=== PATIENT | female | born 1990 | race Caucasian/White ===

== ENCOUNTER 2017-01-24 13:27 | Inpatient (IN) | payer MEDICAID ==
[~2017-01-24] VITALS: Ht 162.6 cm; Wt 95.1 kg
[2017-01-24 13:40] VITALS: BP 120/64; PULSE 98; RESP 18; Ht 162.6 cm; Wt 95.1 kg
[2017-01-24] MEDS ORDERED: TERBUTALINE 1 MG/ML INJ SC ONE (14:30)
[2017-01-24] MEDS ORDERED: OXYTOCIN 30 UNITS/LR 500 ML IV PRN (14:30)
[2017-01-24] MEDS ORDERED: METHYLERGONOVINE 0.2 MG INJ IM PRN (14:30)
[2017-01-24] MEDS ORDERED: OXYTOCIN 30 UNITS/LR 500 ML IV SCH (14:30)
[2017-01-24] MEDS ORDERED: AMPICILLIN 2 GM/NS (PMX) 100 ML IV ONE (14:30)
[2017-01-24] MEDS ORDERED: CARBOPROST 250 MCG INJ IM PRN (14:30)
[2017-01-24] MEDS ORDERED: CEFAZOLIN 2 GM/50 ML (PMX) 50 ML IV SCH (14:30)
[2017-01-24] MEDS ORDERED: MISOPROSTOL 200 MCG TAB PR PRN (14:30)
[2017-01-24] MEDS: LACTATED RINGER'S 1,000 ML IV SCH (14:47)
[2017-01-24 15:16] LABS: ADD SCAN DIFF NO
[2017-01-24 15:21] LABS: BASOPHILS % 0.2 % (0.0-2.0); EOSINOPHILS # 0.1 10^3/ul (0.0-0.5); EOSINOPHILS % 0.9 % (0.0-7.0); HEMATOCRIT 34.5 % (37.0-47.0); HEMOGLOBIN 11.3 g/dl (12.0-16.0); LYMPHOCYTES # 1.7 10^3/ul (0.8-2.9); LYMPHOCYTES % 16.9 % (15.0-51.0); MEAN CORPUSCULAR HEMOGLOBIN 29.5 pg (29.0-33.0); MEAN CORPUSCULAR HGB CONC 32.8 g/dl (32.0-37.0); MEAN CORPUSCULAR VOLUME 90.1 fl (82.0-101.0); MEAN PLATELET VOLUME 12.4 fl (7.4-10.4); MONOCYTE # 0.7 10^3/ul (0.3-0.9); MONOCYTES % 7.4 % (0.0-11.0); NEUTROPHIL # 7.2 10^3/ul (1.6-7.5); NEUTROPHILS % 73.6 % (39.0-77.0); PLATELET COUNT 126 10^3/UL (140-415); RED BLOOD COUNT 3.83 10^6/ul (4.20-5.40); RED CELL DISTRIBUTION WIDTH 13.4 % (11.5-14.5); WHITE BLOOD COUNT 9.8 10^3/ul (4.8-10.8)
[2017-01-24 15:34] LABS: INR 0.92; PROTIME 12.4 Sec (12.2-14.2)
[2017-01-24 15:37] LABS: PARTIAL THROMBOPLASTIN TIME 26.3 Sec (25.0-35.0)
[2017-01-24] MEDS ORDERED: LACTATED RINGER'S 1,000 ML IV ONE ×2 (16:48)
[2017-01-24] MEDS ORDERED: CITRIC ACID/SODIUM CITRATE 15 ML CUP PO ONE ×2 (17:00)
[2017-01-24] MEDS ORDERED: METOCLOPRAMIDE 10 MG INJ IV ONE ×2 (17:00)
[2017-01-24] MEDS ORDERED: FAMOTIDINE 20 MG INJ IV ONE ×2 (17:00)
--- NOTE | 2017-01-24 17:49 | HP ---
Date/Time of Note Date/Time of Note DATE: 01/24/17 TIME: 17:45 OB - History Hx of Present Free Text/Dictation HISTORY OF PRESENT ILLNESS: Patient is a 26 YO [id number] 1 with history of previous delivery, who desires to have repeat delivery and Permanent steriliation. I discussed with the patient the risks, benefits, indications, and alternatives of procedure including but not limited to risks of infection, bleeding, damage to other organs, bowel, bladder, hernia formation , scar formation, possibility of blood transfusion, possible need for emergency hysterectomy, as well as the fact that tubal ligation may fail and there is 1 to 2% risk of failure over lifetime of tubal ligations and the fact that tubal ligation is permanent and irreversible. She was allowed to ask questions. All her questions were answered. Informed consent has been obtained. : 4 Para: 2 Spontaneous : 0 Therapeutic : 0 Care: Good Care Ultrasounds: No ultrasounds Obstetrical Complications: Other (h/o cervical incompetence. had cerclage. cerclage waqs removed last week.) Medical Complications: None Past Family/Social History * Past Medical, Surgical, Family and Obstetric Histories reviewed from chart. OB Admission Exam Vital Signs Vital Signs Vital Signs Date Time Temp Pulse Resp B/P Pulse Ox O2 Delivery O2 Flow Rate FiO2 01/24/17 13:40 98.2 98 18 120/64 98 Room Air Physical Exam HEENT: WNL Heart: Rhythm Normal Lungs: Clear, Equal Abdomen: WNL Extremities: Normal Reflexes: Normal Last 72 hours Lab Results CBC & BMP 01/24/17 14:15 OB Assessment/Plan Other Assessment: Assessment: IUP 39 weeks h/o pervious Desires repeat Desires permanent sterilization Plan: Repeat Delivery Tubal ligation may be done by either salpingectomy or modified surendra BTL Other plan: repeat c/s amd BTL GETACHEW ABBOTT MD Jan 24, 2017 17:49
[2017-01-24] MEDS ORDERED: morphine SULFATE/PF (10 MG/10 ML) INJ ONE (17:58)
[2017-01-24] MEDS ORDERED: FENTAnyl 50 MCG/ML VIAL ONE (17:58)
[2017-01-24] MEDS ORDERED: PHENYLephrine (100 MCG/ML) 5ML SYG ONE (18:29)
[2017-01-24] MEDS ORDERED: AMPICILLIN 1 GM/NS (PMX) 50 ML IV SCH (18:30)
[2017-01-24] MEDS ORDERED: OXYTOCIN 30 UNITS/LR 500 ML IV ONE (18:31)
[2017-01-24] MEDS ORDERED: ONDANSETRON 4 MG INJ ONE (18:32)
[2017-01-24] MEDS ORDERED: DIPHENHYDRAMINE 50 MG INJ IV PRN ×2 (19:00→20:30)
[2017-01-24] MEDS ORDERED: KETOROLAC 30 MG INJ IV PRN (19:00)
[2017-01-24] MEDS ORDERED: FENTAnyl 50 MCG/ML VIAL IV PRN (19:00)
[2017-01-24] MEDS ORDERED: PROCHLORPERAZINE 10 MG INJ IV PRN ×2 (19:00→20:30)
[2017-01-24] MEDS ORDERED: ONDANSETRON 4 MG INJ IV PRN ×2 (19:00→20:30)
[2017-01-24] MEDS ORDERED: MEPERIDINE 25 MG INJ IV PRN (19:00)
[2017-01-24] MEDS ORDERED: HYDROmorphONE (0.2 MG/ML) 10ML SYG IV PRN (19:00)
--- NOTE | 2017-01-24 19:06 | OPR ---
Operative Report Planned Procedure Free Text/Dictation DATE OF OPERATION: PREOPERATIVE DIAGNOSES: 1. Term , history of previous delivery: 2. Desires repeat delivery. 3. Desires permanent sterilization 4. Labor POSTOPERATIVE DIAGNOSES: 1. Same OPERATION PERFORMED: Repeat delivery Right distal salpingectomy and left modified Greg tubal ligation SURGEON: Getachew Conley MD PUBLIC HEALTH WORKER: MS Soha MD ESTIMATED BLOOD LOSS: 700 mL. COMPLICATIONS: None. The risks, benefits, indications, alternatives of procedure including, but not limited to risk of infection, bleeding, damage to other organs, bowel, bladder, hernia formation, scar formation, possibility of blood transfusions, the risks of tubal ligation such as failure and future pregnancies were discussed with the patient. The fact that BTL is permanent and irreversible also discussed with patient. She was allowed to ask questions. All her questions were answered. Informed consent was obtained. DESCRIPTION OF PROCEDURE: She was taken to the operating room. Spinal anesthesia was induced. She was prepped and draped in the usual sterile fashion. Surgical time out one. Anesthesia was tested to be adequate. With permission from anethesiologist, a knife was used to make a Pfannenstiel skin incision. The incision was taken down in layers. The fascia was cut, undermined and from the underlying muscle using sharp and blunt dissection. All the bleeders were cauterized. Peritoneum was entered bluntly. A low transverse incision was developed over the uterus. Amniotic fluid was clear and adequate. A viable infant in vertex presentation was delivered without any difficulty. The cord was clamped and cut, handed to awaiting team. Placenta was then delivered. Uterus was exteriorized, wrapped around a moist lap. Inside uterus was cleaned using a dry lap. All residual membranes were removed. The uterine incision was then closed using #1 Monocryl in 2 layers. A 5 cm distal end of the right tube was ligated 3 times using 0 plain tie and the ligated portion was cut, sent to pathology. The distal end ot the left tube was already removed due to her Ectopic surgery. I ligated he middle portion of the left tube 3 times nd then the ligated portion was cut. The uterus was inserted back inside the abdominal cavity. Irrigation was done carefully. Careful evaluation of the uterine incision revealed no further bleeding. The tubal ligation sites were evaluated carefully. There was no bleeding. The peritoneum and rectus muscles and fascia were evaluated. All bleeders cauterized. Peritoneum was closed using 2-0 Monocryl. At this time, the count was correct. Rectus fascia was reapproximated using 2-0 Monocryl. Rectus fascia was closed using #1 Vicryl. Subcutaneous tissue was cleaned and irrigated. All bleeders cauterized and the skin closed using 4-0 Monocryl. All counts correct. Procedure date Jan 24, 2017 Post-Procedure Pt Condition post procedure: stable Disposition: PACU Physician Certification I, the undersigned physician, hereby certify that I have discussed the procedure described in this consent form with this patient (or the patient's legal operations representative), including: * The risk and benefits of the procedure; * Any adverse reactions that may reasonably be expected to occur; * Any alternative efficacious methods of treatment which may be medically viable ; * The potential problems that may occur during recuperation; * Potential for blood transfusion and associated risks/benefits; and * Any research or economic interest I may have regarding this treatment. I further certify that the patient/legally responsible person was encouraged to ask question and that all questions were answered. GETACHEW CONLEY MD Jan 24, 2017 19:06
[2017-01-24] MEDS ORDERED: NALOXONE (0.4 MG/ML) INJ IV PRN (20:30)
[2017-01-24] MEDS ORDERED: HYDROmorphONE 1 MG/ML SYG IV PRN ×2 (20:30)
[2017-01-24] MEDS ORDERED: ZOLPIDEM 5 MG TAB PO PRN (20:30)
--- NOTE | 2017-01-24 21:43 | DELSUM ---
Delivery Summary A-C Datetime Report Generated by CPN: 01/24/2017 21:42 DELIVERY PERSONNEL Linoleum Layer Helper: Concepcion, [place] MATERNAL INFORMATION Delivery Anesthesia: Spinal Medications in Delivery: see anesthesia Estimated Blood Loss (ml): 600 Placenta Cultured: No Maternal Complications: Other Other Maternal Complications: labor LABOR SUMMARY EDC: 02/10/2017 00:00 No. Babies in Womb: 1 Attempted: No Labor Anesthesia: Intrathecal LABOR INFORMATION Reason for Induction: Not Applicable Onset of Labor: 01/24/2017 05:00 Oxytocin: N/A Group B Beta Strep: Negative Antibiotics # of Doses: 1 Antibiotics Time of Last Dose: 01/24/2017 18:03 Steroids Given: None Reason Steroids Not Administered: Not Applicable MEMBRANES Membranes Rupture Method: Artificial Rupture of Membranes: 01/24/2017 18:24 Length of Rupture (hr): 0.02 Amniotic Fluid Color: Clear Amniotic Fluid Amount: Moderate Amniotic Fluid Odor: Normal STAGES OF LABOR Stage 3 hr: 0 Stage 3 min: 0 Total Time in Labor hr: 13 Total Time in Labor min: 25 CSECTION DELIVERY Primary Indication: Repeat Elective Secondary Indication: N/A CSection Urgency: Non Elective CSection Incidence: Repeat Labor: Labor Elective: Nonelective CSection Incision: Lower Uterine Transverse Sterilization Procedure: [place] BABY A INFORMATION Delivery Date/Time: 01/24/2017 18:25 Method of Delivery: Born in Route : No : N/A Forceps: N/A Vacuum Extraction: N/A Shoulder Dystocia : No SHOULDER DYSTOCIA BABY A Delivery Date/Time: 01/24/2017 18:25 PRESENTATION/POSITION BABY A Presentation: Cephalic Cephalic Presentation: Vertex Vertex Position: Left Occipital Anterior Breech Presentation: N/A PLACENTA INFORMATION BABY A Placenta Delivery Time : 01/24/2017 18:25 Placenta Method of Delivery: Manual Removal Placenta Status: Delivered SCORES BABY A Heart Rate 1 min: >100 bpm Resp Effort 1 min: Good Cry Reflex Irritability 1 min: Cough/Sneeze/Pulls Away Muscle Tone 1 min: Active Motion Color 1 min: Body [place], Extremit Blue Resuscitation Effort 1 min: Tactile Stimulation SCORE 1 MIN: 9 Heart Rate 5 min: >100 bpm Resp Effort 5 min: Good Cry Reflex Irritability 5 min: Cough/Sneeze/Pulls Away Muscle Tone 5 min: Active Motion Color 5 min: Body [place], Extremit Blue SCORE 5 MIN: 9 INFORMATION BABY A Gestational Age at Delivery: 37.4 Gestational Status: Early Term- 37- 38.6 Weeks Infant Outcome : Liveborn Infant Condition : Stable Sex: Female IDENTIFICATION/MEDS BABY A ID Band Number: [id number] ID Band Location: Right Leg; Left Arm Sensor Applied: Yes Sensor Number: [id number] Sensor Location : Cord Clamp WEIGHT/LENGTH BABY A Birthweight (gm): 3770 Weight (lb): 8 Weight (oz): 5 Infant Length (in): 19.00 Infant Length (cm): 48.26 CORD INFORMATION BABY A No. Cord Vessels: 3 Nuchal Cord : N/A Cord Blood Taken: Yes Infant Suction: Mouth ASSESSMENT BABY A Complications: None Physical Findings at Delivery: Within Normal Limits Infant Respirations: Appears Normal Applied Mathematician/ALS Called : No Infant Care By: /mio rnc Transferred To: Remains with Mother
[2017-01-24 22:25] VITALS: BP 110/79; PULSE 79; RESP 20
[2017-01-25 04:00] VITALS: BP 108/62; PULSE 87; RESP 19
[2017-01-25 07:37] LABS: ADD SCAN DIFF NO
[2017-01-25 07:54] LABS: ABNORMAL IP MESSAGE 1; BASOPHILS % 0.2 % (0.0-2.0); EOSINOPHILS # 0.1 10^3/ul (0.0-0.5); EOSINOPHILS % 0.8 % (0.0-7.0); HEMATOCRIT 27.4 % (37.0-47.0); HEMOGLOBIN 9.1 g/dl (12.0-16.0); LYMPHOCYTES # 1.4 10^3/ul (0.8-2.9); LYMPHOCYTES % 14.4 % (15.0-51.0); MEAN CORPUSCULAR HEMOGLOBIN 30.2 pg (29.0-33.0); MEAN CORPUSCULAR HGB CONC 33.2 g/dl (32.0-37.0); MEAN PLATELET VOLUME 12.6 fl (7.4-10.4); MONOCYTE # 0.8 10^3/ul (0.3-0.9); MONOCYTES % 7.9 % (0.0-11.0); NEUTROPHIL # 7.6 10^3/ul (1.6-7.5); NEUTROPHILS % 76.1 % (39.0-77.0); PLATELET COUNT 97 10^3/UL (140-415); RED BLOOD COUNT 3.01 10^6/ul (4.20-5.40); RED CELL DISTRIBUTION WIDTH 13.2 % (11.5-14.5)
--- NOTE | 2017-01-25 10:45 | PN ---
Date/Time of Note Date/Time of Note DATE: 01/25/17 TIME: 10:43 OB Subjective Subjective Subjective Patient tolerating clears. Has not ambulated yet. Pain controlled. OB Objective Objective Objective Gen: NAD Abd: I-C/D/I OB Assessment/Plan Other Assessment: POD1 -advance diet as tolerated -encourage ambulation MOO HERRING Jan 25, 2017 10:45
[2017-01-25 12:00] VITALS: BP 117/54; PULSE 92; RESP 20
[2017-01-25] MEDS: KETOROLAC 30 MG INJ IV PRN ×2 (12:41→18:54)
[2017-01-25 16:29] VITALS: BP 102/57; PULSE 82; RESP 20
[2017-01-25 20:10] VITALS: BP 106/64; PULSE 84; RESP 18
[2017-01-25] MEDS: LACTATED RINGER'S 1,000 ML IV SCH ×2 (21:56→21:57)
[2017-01-26] MEDS ORDERED: OXYCODONE/ACETAMINOPHEN (5/325) TAB PO PRN ×2 (01:30)
[2017-01-26 04:38] VITALS: BP 107/72; PULSE 81; RESP 18
[2017-01-26] MEDS: IBUPROFEN 800 MG TAB PO SCH ×4 (05:15→23:36)
[2017-01-26 08:00] VITALS: BP 90/63; PULSE 78; RESP 18
--- NOTE | 2017-01-26 11:54 | QN ---
Documentation Comment POD#2 is stable Afebrile tolerates diet No VB +Flatus No sign of depression VS stable Gen NAD Abd soft NT ND dressing to be removed Genitalia No blood at perinium --->discharge plan tomorrow --->ambulation EVAN NELSON M.D. Jan 26, 2017 11:54
[2017-01-26] MEDS ORDERED: SENNA TAB PO PRN (13:30)
[2017-01-26] MEDS ORDERED: LANOLIN 7 GM TUBE TOP PRN (13:30)
[2017-01-26] MEDS ORDERED: NA PHOSPHATE/BIPHOS 133 ML ENEMA PR PRN (13:30)
[2017-01-26 16:00] VITALS: BP 117/68; PULSE 78; RESP 18
[2017-01-26 20:00] VITALS: BP 113/59; PULSE 84; RESP 20
[2017-01-27 03:46] VITALS: BP 119/65; PULSE 74; RESP 20
[2017-01-27] MEDS: IBUPROFEN 800 MG TAB PO SCH ×3 (05:27→18:00)
[2017-01-27 08:00] VITALS: BP 114/68; PULSE 80; RESP 20
--- NOTE | 2017-01-27 13:43 | DS ---
Date/Time of Note Date/Time of Note DATE: 01/27/17 TIME: 13:42 Obstetrical Discharge Record Final Diagnosis Final Diagnosis: Term delivered Section Section: Repeat Condition on Discharge Physical Assessment Voiding: Yes Bowel Movement: Yes Breast: Soft, non-tender Fundus: Firm Abdomen and Incision: CDI Calf Tenderness: No Patient Condition: Stable ORQUIDEA CEDILLO MD Jan 27, 2017 13:43
[2017-01-27 18:11] VITALS: BP 116/67; PULSE 76; RESP 19
== END 2017-01-27 17:50 | disposition home or self-care (01) | DRG 765 ==
LOC: OBT 13:27 → L-D 13:28 → OBT 14:04 → L-D 14:04 → OBG 22:30 → PP1 01-26 20:51
PROVIDERS: ADMIT Specialist; ATTEND Specialist
PROC: 0UB70ZZ Excision of Bilateral Fallopian Tubes, Open Approach (ICD-10-PCS; 2017-01-24)
PROC: 10D00Z1 Extraction of Products of Conception, Low, Open Approach (ICD-10-PCS; principal; 2017-01-24 17:30)
DX: O34.219 Maternal care for unspecified type scar from previous cesarean delivery (principal); O34.33 Maternal care for cervical incompetence, third trimester; Z30.2 Encounter for sterilization; Z3A.39 39 weeks gestation of pregnancy; Z37.0 Single live birth
CPT/HCPCS: 85025; 85610; 85730; 86592; 86850; 86900; 86901; 87340; 88302; 94760; 99464; G0463; J0290; J0690; J1200; J1885; J2274; J2370; J2405; J2590; J2765; J3010; J3105; J7120